=== PATIENT | female | born 1970 | race Caucasian/White ===

== ENCOUNTER 2017-07-06 08:38 | Inpatient (IN) | payer OTHER ==
[2017-07-06] VITALS (7 sets, daily range): BP systolic 94–120; BP diastolic 53–70
[~2017-07-06] VITALS: Ht 167.6 cm; Wt 125.9 kg
--- NOTE | ~2017-07-06 | EKG ---
[place], [place] ELECTROCARDIOGRAM REPORT NAME: KASIA HOLLAND UNIT #: [id number] ROOM: 524 DOCTOR: NOEMI JAIMES [facility],[place] BIRTHDATE: [birth year] DOS: 07/06/2017 TIME: 0928. CONCLUSION: 1. Sinus rhythm. 2. 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 3. Nonspecific ST changes. 4. Low voltage in limb leads. 5. ST changes in the lateral leads may suggest myocardial ischemia. [place] FRANKLIN MD CM:EKGRPT:ELECTROCARDIOGRAM REPORT [id number] [facility]
--- NOTE | ~2017-07-06 | CON ---
[place], [place] REPORT OF CONSULTATION NAME: KASIA HOLLAND [facility] [id number] UNIT #: [id number] ROOM: 524 [facility] [birth year] DOS: 07/07/2017 CARDIOLOGY CONSULTATION HISTORY OF PRESENT ILLNESS: This lady has just come to my office. Currently, Chago Aldana is the hospitalist, [place]. The patient's troponin continues to grow up and the patient has recurrent angina and also has progressive dizziness, congestion for one month and Dr. Valdez has seen her about a week to 10 days ago. She finally ended up to have productive yellow sputum, treated appropriately. The patient has a strong family history of heart disease; father, brother and mother of heart disease. The patient has a history of stents in the arteries in the legs. The patient has history of diabetes and hypertension. The patient also has a leg wound, peripheral arterial studies being done to evaluate any significant peripheral arterial disease to address appropriately. Optimally care including the Plavix, losartan and beta-delano agents. The patient has a history of workup done on the arteries in the legs, diabetes mellitus type 2, gastroesophageal reflux, dyslipidemia, hypothyroidism, peripheral arterial disease. SOCIAL HISTORY: No history of smoking, alcohol or illicit drug use. MEDICATIONS: The patient is on 40 mg of Lipitor, clopidogrel 75 mg daily, furosemide, gabapentin, gemfibrozil, insulin, isosorbide, lisinopril, metformin. We will hold the metformin for 2-3 days. PHYSICAL EXAMINATION: VITAL SIGNS: Stable. Blood pressure 114/66. GENERAL: Alert, not in acute distress. NECK: No jugular venous distention. LUNGS: No rales heard. HEART: S1, S2 regular. ABDOMEN: Soft. SKIN: Color is good, not diaphoretic. No cyanosis. RECTAL, GENITAL, AND BREAST EXAM: Deferred. LABORATORY DATA: Troponin is elevated. DIAGNOSES: Coronary artery disease, [id number] myocardial infarction, diabetes, severe peripheral arterial disease with interventional revascularization, and underlying coronary artery disease may be considered with the strong family history. The patient is opting for coronary angiography and percutaneous coronary intervention rather than ____ uneventful and in unfortunate situation, needed a bypass in emergency long ago, otherwise electively, she preferred percutaneous coronary intervention. Options, procedures, complications, morbid mortality risk is explained. [place], [place] REPORT OF CONSULTATION NAME: COLLEENKASIA MONIQUE Cory UNIT #: [id number] ROOM: 524 DOCTOR[facility]: [birth year] [place] FRANKLIN MD CM:CONSTR:REPORT OF CONSULTATION [id number] 07/07/17 2324 interface HEAVENLY BROOKE DO
[~2017-07-06 08:38] MED LIST: HYDROCODONE BIT1 T11 PO; VOLTAREN50 M1 PO
[2017-07-06] MEDS ORDERED: PLAVIX75 M1 PO (08:45)
[2017-07-06] MEDS ORDERED: NEURONTIN100 MG PO (08:46)
[2017-07-06] MEDS ORDERED: BENADRYL ALLERG25 M5 PO (08:46)
[2017-07-06] MEDS ORDERED: TOPROL XL50 M1 PO (08:47)
[2017-07-06] MEDS ORDERED: CYCLOBENZAPRINE10 MG PO (08:47)
[2017-07-06] MEDS ORDERED: LOPID600 M1 PO (08:47)
[2017-07-06] MEDS ORDERED: IMDUR SA30 MG PO (08:48)
[2017-07-06] MEDS ORDERED: Synthroid,Lev150 MCG PO (08:48)
[2017-07-06] MEDS ORDERED: GLUCOPHAGE1000 MG PO (08:49)
[2017-07-06] MEDS ORDERED: LISINOPRIL2.5 MG PO (08:49)
[2017-07-06] MEDS ORDERED: POTASSIUM CHLO10 ME5 PO (08:49)
[2017-07-06] MEDS ORDERED: PEPCID40 MG PO (08:50)
[2017-07-06] MEDS ORDERED: LIPITOR40 MG PO (08:50)
[2017-07-06] MEDS ORDERED: LASIX20 MG PO (08:50)
[2017-07-06] MEDS ORDERED: HUMALOG100 UNIT/2 SQ (08:51)
[2017-07-06] MEDS ORDERED: TOUJEO SOL300 UNIT/1 SQ (08:51)
[2017-07-06 09:41] LABS: BASO # 0.1 10*3/uL (0.0-0.1); BASO % 0.5 % (0.0-1.0); EOS # 0.2 10*3/uL (0.0-0.4); EOS % 1.8 % (1.0-4.0); HEMATOCRIT 30.5 % (37.0-47.0); HEMOGLOBIN 9.7 g/dl (12.0-16.0); LYMPH # 1.2 10*3/uL (1.3-4.4); MEAN CORPUSCULAR HGB 26.7 pg (27.0-31.0); MEAN CORPUSCULAR HGB CONC 31.8 g/dl (33.0-37.0); MEAN PLATELET VOLUME 9.7 fl (9.6-12.3); MONO # 0.7 10*3/uL (0.1-1.0); MONO % 6.7 % (3.0-9.0); NEUT # 7.9 10*3/uL (2.3-7.9); NEUT % 78.6 % (47.0-73.0); PLATELET COUNT AUTOMATED 401 10*3/uL (130-400); RED BLOOD COUNT 3.63 10*6/uL (4.10-5.10); RED CELL DISTRI WIDTH 14.3 % (0-14.5); WHITE BLOOD COUNT 10.1 10*3/uL (4.8-10.8)
[2017-07-06 09:56] LABS: ALBUMIN 3.1 gm/dl (3.1-4.5); ALKALINE PHOSPHATASE 63 U/L (45-117); BUN 24 mg/dl (7-24); CHLORIDE 97 mmol/L (98-107); LIPASE 97 U/L (73-393); POTASSIUM 4.5 mmol/L (3.5-5.1); SGOT/AST 10 IU/L (3-35); SGPT/ALT 14 U/L (12-78); SODIUM 132 mmol/L (136-145); TOTAL PROTEIN 7.2 gm/dL (6.4-8.2)
[2017-07-06] MEDS ORDERED: NOVOLOG MI100 UNIT/2 SQ (11:29)
[2017-07-06] MEDS ORDERED: HYDROXYZINE HCL25 M1 PO (13:08)
[2017-07-06] MEDS ORDERED: CYMBALTA60 MG PO (13:09)
[2017-07-06] MEDS ORDERED: LATU60TA PO (13:09)
[2017-07-06 15:11] LABS: CKMB 2.7 ng/ml (0.5-3.6)
[2017-07-06 15:14] LABS: TROPONIN I 0.572 ng/ml (<0.045)
[2017-07-07] VITALS: BP 109/88
[2017-07-07 03:05] LABS: BASO % 0.2 % (0.0-1.0); HEMATOCRIT 29.5 % (37.0-47.0); HEMOGLOBIN 9.5 g/dl (12.0-16.0); LYMPH # 0.9 10*3/uL (1.3-4.4); LYMPH % 8.7 % (27.0-41.0); MEAN CELL VOLUME 82.4 fl (81.0-99.0); MEAN CORPUSCULAR HGB 26.5 pg (27.0-31.0); MEAN CORPUSCULAR HGB CONC 32.2 g/dl (33.0-37.0); MEAN PLATELET VOLUME 9.7 fl (9.6-12.3); MONO # 0.2 10*3/uL (0.1-1.0); MONO % 2.4 % (3.0-9.0); NEUT # 8.7 10*3/uL (2.3-7.9); NEUT % 88.2 % (47.0-73.0); PLATELET COUNT AUTOMATED 381 10*3/uL (130-400); RED BLOOD COUNT 3.58 10*6/uL (4.10-5.10); RED CELL DISTRI WIDTH 14.1 % (0-14.5); WHITE BLOOD COUNT 9.8 10*3/uL (4.8-10.8)
[2017-07-07 03:15] LABS: INTERNATIONAL NORM RATIO 1.2 (2.0-3.5)
[2017-07-07 03:24] LABS: ALBUMIN 2.8 gm/dl (3.1-4.5); ALKALINE PHOSPHATASE 55 U/L (45-117); BUN 25 mg/dl (7-24); CHLORIDE 94 mmol/L (98-107); CHOLESTEROL 177 mg/dL (<200); CREATININE 0.94 mg/dL (0.55-1.02); FREE T4 1.37 ng/dl (0.76-1.46); HDL CHOLESTEROL 41 mg/dl (40-60); LDL CHOLESTEROL 116 mg/dL (9-159); PHOSPHOROUS 2.9 mg/dL (2.5-4.9); POTASSIUM 4.4 mmol/L (3.5-5.1); SGOT/AST 8 IU/L (3-35); SGPT/ALT 15 U/L (12-78); SODIUM 130 mmol/L (136-145); TOTAL PROTEIN 6.9 gm/dL (6.4-8.2); TRIGLYCERIDES 99 mg/dl (<150); VLDL CHOLESTEROL 20 mg/dL (6-40)
[2017-07-07 03:41] LABS: VITAMIN D, 25-HYDROXY 10.7 ng/mL (30-100)
== END 2017-07-07 05:55 | disposition short-term general hospital (02) | DRG 280 ==
LOC: ED 08:38 → EDHOLD 11:05 → 5E 11:14
PROVIDERS: Emergency Medicine; Family Medicine
DX: I21.4 Non-ST elevation (NSTEMI) myocardial infarction (principal); J18.9 Pneumonia, unspecified organism; E11.51 Type 2 diabetes mellitus with diabetic peripheral angiopathy without gangrene; I11.0 Hypertensive heart disease with heart failure; E11.65 Type 2 diabetes mellitus with hyperglycemia; I50.9 Heart failure, unspecified; E87.1 Hypo-osmolality and hyponatremia; E87.8 Other disorders of electrolyte and fluid balance, not elsewhere classified; E78.5 Hyperlipidemia, unspecified; K21.9 Gastro-esophageal reflux disease without esophagitis; E03.9 Hypothyroidism, unspecified; D72.810 Lymphocytopenia; D64.9 Anemia, unspecified; I25.119 Atherosclerotic heart disease of native coronary artery with unspecified angina pectoris; R11.11 Vomiting without nausea; E11.59 Type 2 diabetes mellitus with other circulatory complications; Z82.49 Family history of ischemic heart disease and other diseases of the circulatory system; Z80.52 Family history of malignant neoplasm of bladder; Z79.4 Long term (current) use of insulin; Z95.828 Presence of other vascular implants and grafts; Z83.3 Family history of diabetes mellitus; Z84.89 Family history of other specified conditions; Z79.899 Other long term (current) drug therapy

== ENCOUNTER → 2017-11-11 | Outpatient (CLI) | payer OTHER ==
[~2017-11-11] MED LIST changes: +BENADRYL ALLERG25 M5 PO; +CYCLOBENZAPRINE10 MG PO; +CYMBALTA60 MG PO; +GLUCOPHAGE1000 MG PO; +HUMALOG100 UNIT/2 SQ; +HYDROXYZINE HCL25 M1 PO; +IMDUR SA30 MG PO; +LASIX20 MG PO; +LATU60TA PO; +LIPITOR40 MG PO; +LISINOPRIL2.5 MG PO; +LOPID600 M1 PO; +NEURONTIN100 MG PO; +NOVOLOG MI100 UNIT/2 SQ; +PEPCID40 MG PO; +PLAVIX75 M1 PO; +POTASSIUM CHLO10 ME5 PO; +Synthroid,Lev150 MCG PO; +TOPROL XL50 M1 PO; +TOUJEO SOL300 UNIT/1 SQ
[2017-11-11 14:03] LABS: BILIRUBIN NEGATIVE (NEGATIVE); BLOOD TRACE-INTACT (NEGATIVE); CLARITY CLEAR (CLEAR); COLOR YELLOW (YELLOW); GLUCOSE 1+ (NEGATIVE); KETONE NEGATIVE (NEGATIVE); LEUKO ESTERASE NEGATIVE (NEGATIVE); NITRITE NEGATIVE (NEGATIVE); PH 5.5 (5.0-9.0); SPECIFIC GRAVITY 1.025 (1.005-1.030); UROBILINOGEN 0.2 E.U./dl (0.2-1.0)
[2017-11-11 14:04] LABS: ALKALINE PHOSPHATASE 75 U/L (45-117); CHOLESTEROL 155 mg/dL (<200); FREE T4 0.87 ng/dl (0.76-1.46); HDL CHOLESTEROL 47 mg/dl (40-60)
[2017-11-11 14:08] LABS: BUN 16 mg/dl (7-24); CHLORIDE 102 mmol/L (98-107); POTASSIUM 4.3 mmol/L (3.5-5.1); SODIUM 139 mmol/L (136-145)
[2017-11-11 14:09] LABS: ALBUMIN 3.3 gm/dl (3.1-4.5); BILIRUBIN, DIRECT < 0.1 mg/dL (0.0-0.2); LDL CHOLESTEROL 81 mg/dL (9-159); SGOT/AST 13 IU/L (3-35); SGPT/ALT 17 U/L (12-78); TRIGLYCERIDES 134 mg/dl (<150); VLDL CHOLESTEROL 27 mg/dL (6-40)
[2017-11-11 14:22] LABS: EPITHELIAL CELLS TNTC
[2017-11-11 14:23] LABS: BACTERIA 1+
[2017-11-11 14:24] LABS: HYALINE CAST 0-2
== END | disposition home or self-care (01) ==
LOC: LAB 13:07
PROVIDERS: Internal Medicine
DX: E11.65 Type 2 diabetes mellitus with hyperglycemia (principal); E78.5 Hyperlipidemia, unspecified; E03.9 Hypothyroidism, unspecified

== ENCOUNTER → 2018-07-05 | Outpatient (CLI) | payer OTHER ==
[2018-07-05 14:05] LABS: BILIRUBIN NEGATIVE (NEGATIVE); BLOOD TRACE-INTACT (NEGATIVE); CLARITY CLEAR (CLEAR); COLOR YELLOW (YELLOW); GLUCOSE 3+ (NEGATIVE); KETONE NEGATIVE (NEGATIVE); LEUKO ESTERASE NEGATIVE (NEGATIVE); NITRITE NEGATIVE (NEGATIVE); UROBILINOGEN 0.2 E.U./dl (0.2-1.0)
[2018-07-05 14:12] LABS: BACTERIA 2+; RBC 0-2 rbc/hpf (0-2)
[2018-07-05 14:36] LABS: ALBUMIN 3.4 gm/dl (3.1-4.5); BUN 15 mg/dl (7-24); CHLORIDE 102 mmol/L (98-107); CHOLESTEROL 288 mg/dL (<200); CREATININE 0.86 mg/dL (0.55-1.02); POTASSIUM 4.2 mmol/L (3.5-5.1); SGOT/AST 10 IU/L (3-35); SGPT/ALT 16 U/L (12-78); SODIUM 138 mmol/L (136-145); TRIGLYCERIDES 300 mg/dl (<150); VLDL CHOLESTEROL 60 mg/dL (6-40)
[2018-07-05 14:43] LABS: ALKALINE PHOSPHATASE 72 U/L (45-117); BILIRUBIN, DIRECT < 0.1 mg/dL (0.0-0.2); FREE T4 1.11 ng/dl (0.76-1.46); HDL CHOLESTEROL 40 mg/dl (40-60); LDL CHOLESTEROL 188 mg/dL (9-159); TOTAL PROTEIN 7.6 gm/dL (6.4-8.2)
== END | disposition home or self-care (01) ==
LOC: LAB 13:27
PROVIDERS: Internal Medicine
DX: E11.40 Type 2 diabetes mellitus with diabetic neuropathy, unspecified (principal); E03.9 Hypothyroidism, unspecified; E78.5 Hyperlipidemia, unspecified

== ENCOUNTER → 2019-06-22 | Outpatient (CLI) | payer OTHER | END | disposition home or self-care (01) | LOC: US 15:00 | DX: M79.605 Pain in left leg (principal); R60.0 Localized edema ==

== ENCOUNTER 2020-04-29 07:10 | Emergency (ER) | payer OTHER ==
[~2020-04-29] VITALS: Ht 167.6 cm; Wt 117.9 kg
[2020-04-29 08:26] LABS: BASO # 0.1 10*3/uL (0.0-0.1); BASO % 0.6 % (0.0-1.0); EOS # 0.3 10*3/uL (0.0-0.4); EOS % 2.9 % (1.0-4.0); HEMATOCRIT 43.8 % (37.0-47.0); LYMPH % 19.1 % (27.0-41.0); MEAN CELL VOLUME 87.8 fl (81.0-99.0); MEAN CORPUSCULAR HGB 27.5 pg (27.0-31.0); MEAN CORPUSCULAR HGB CONC 31.3 g/dl (33.0-37.0); MEAN PLATELET VOLUME 10.3 fl (9.6-12.3); MONO # 0.9 10*3/uL (0.1-1.0); MONO % 8.7 % (3.0-9.0); PLATELET COUNT AUTOMATED 259 10*3/uL (130-400); RED BLOOD COUNT 4.99 10*6/uL (4.10-5.10); RED CELL DISTRI WIDTH 13.3 % (0-14.5); WHITE BLOOD COUNT 10.3 10*3/uL (4.8-10.8)
[2020-04-29 08:36] LABS: ACT PARTIAL THROMBO TIME 22.7 SECONDS (20.0-32.1)
[2020-04-29 08:42] LABS: ALBUMIN 3.3 gm/dl (3.1-4.5); ALKALINE PHOSPHATASE 73 U/L (45-117); BUN 13 mg/dl (7-24); CHLORIDE 102 mmol/L (98-107); CREATININE 0.66 mg/dL (0.55-1.02); LIPASE 118 U/L (73-393); POTASSIUM 3.4 mmol/L (3.5-5.1); SGOT/AST 20 IU/L (3-35); SGPT/ALT 28 U/L (12-78); SODIUM 137 mmol/L (136-145); TOTAL PROTEIN 7.8 gm/dL (6.4-8.2)
[2020-04-29 08:43] LABS: BETA-HCG, QUANT < 1.0 mIU/mL (1-3); TROPONIN I < 0.015 ng/ml (<0.045)
[2020-04-29] MEDS ORDERED: ZITHROMAX250 MG PO (10:30)
== END 2020-04-29 10:40 | disposition home or self-care (01) ==
LOC: ED 07:10
PROVIDERS: Emergency Medicine
DX: J20.9 Acute bronchitis, unspecified (principal); Z88.6 Allergy status to analgesic agent; Z79.899 Other long term (current) drug therapy

== ENCOUNTER 2020-08-21 12:32 | Emergency (ER) | payer OTHER ==
[~2020-08-21 12:32] MED LIST changes: +ZITHROMAX250 MG PO
== END 2020-08-21 14:40 ==
LOC: ED 12:42
DX: I46.9 Cardiac arrest, cause unspecified (principal); Z79.899 Other long term (current) drug therapy; Z79.4 Long term (current) use of insulin; Z79.2 Long term (current) use of antibiotics; Z98.890 Other specified postprocedural states